=== PATIENT | male | born 1940 | race Caucasian/White ===

== ENCOUNTER → 2016-09-03 | Outpatient (CLI) | payer MEDICARE, BC ==
--- NOTE | 2016-09-22 13:44 | RSPPFT ---
DATE OF PROCEDURE: 09/03/16 COMMENTS: VOLUMES DYNAMIC: FVC and FEV1 moderately reduced. STATIC: TLC normal; VTG mildly increased; RV moderately increased. FLOWS: FEV1% mildly reduced; FEF 25-75 severely reduced. DIFFUSION: Moderately reduced. FLOW VOLUME LOOP: Pattern of variable intrathoracic airways obstruction. IMPRESSION: Moderately severe obstructive ventilatory defect with hyperinflation and a reduction in diffusion. There is improvement post-bronchodilator although airways resistance is quite low.
== END ==
LOC: HRSP 12:24
PROVIDERS: ATTEND Internal Medicine
DX: J84.10 Pulmonary fibrosis, unspecified (principal)
CPT/HCPCS: 94060; 94620; 94726; 94729

== ENCOUNTER → 2017-06-09 | Outpatient (CLI) | payer MEDICARE, BC ==
--- NOTE | 2017-06-10 11:53 | RSPPFT ---
DATE OF PROCEDURE: 06/09/17 COMMENTS: VOLUMES DYNAMIC: FVC and FEV1 moderately reduced. STATIC: Unable to complete. DIFFUSION: Unable to complete. FLOWS: FEV1% normal, FEF 25-75 moderately reduced. FLOW VOLUME LOOP: Restrictive configuration although the tracing is poor. IMPRESSION: This probably represents a moderate to severe restrictive ventilatory defect although it is a poor study. Clinical correlation is required. No improvement post-bronchodilator.
== END ==
LOC: HRSP 13:08
PROVIDERS: ATTEND Internal Medicine
DX: J84.10 Pulmonary fibrosis, unspecified (principal)
CPT/HCPCS: 94060; 94620

== ENCOUNTER → 2017-10-31 | Outpatient (CLI) | payer MEDICARE, BC ==
--- NOTE | 2017-11-01 10:49 | RSPPFT ---
DATE OF PROCEDURE: 10/31/17 COMMENTS: VOLUMES DYNAMIC: FVC and FEV1 moderately reduced. FLOWS: FEV1% and FEF 25-75 normal. IMPRESSION: This appears to be a moderately severe restrictive ventilatory defect. Full lung volumes would be necessary for further evaluation.
== END ==
LOC: HRSP 13:11
PROVIDERS: ATTEND Internal Medicine
DX: J84.10 Pulmonary fibrosis, unspecified (principal)
CPT/HCPCS: 94010